=== PATIENT | female | born 2000 | race Caucasian/White ===

== ENCOUNTER 2023-07-02 12:06 | Outpatient (CLI) | payer OTHER, SELFPAY | END 2023-07-02 12:07 | disposition home or self-care (01) | PROVIDERS: PCP Physician Assistant Medical; Visit Provider Obstetrics & Gynecology | DX: R10.2 Pelvic and perineal pain (principal) | CPT/HCPCS: 87086; 87109 ==

== ENCOUNTER 2023-07-29 08:45 | Outpatient (CLI) | payer OTHER, SELFPAY | END 2023-07-29 08:46 | disposition home or self-care (01) | LOC: NFLDREF 09:08 | PROVIDERS: PCP Physician Assistant Medical; Visit Provider Obstetrics & Gynecology | DX: N34.1 Nonspecific urethritis (principal); B96.89 Other specified bacterial agents as the cause of diseases classified elsewhere | CPT/HCPCS: 87109 ==

== ENCOUNTER 2023-11-06 11:14 | Emergency (ER) | payer OTHER, SELFPAY ==
[2023-11-06 11:26] VITALS: BP 109/74; PULSE 110; RESP 16; TEMP 36.8; O2SAT 99; BMI 23.8
[2023-11-06 11:42] LABS: Appearance Urine Cloudy (Clear); Bilirubin Urine Negative (Negative); Blood Urine 2+ (Negative); Color Urine Yellow (Yellow); Glucose Urine Negative (Negative); Ketones Urine 1+ (Negative); Leukocyte Esterase Urine 1+ (Negative); Nitrite Urine Negative (Negative); Protein Urine Negative (Negative); Specific Gravity Urine 1.015 (1.000-1.030); Urobilinogen Urine 0.2 (0.2-1.0)
[2023-11-06 11:45] LABS: Ur HCG Qualitative* Negative (Negative)
[2023-11-06 11:51] LABS: Bacteria Urine Moderate; Squamous Epithelial Cell Urine Many (None-Few); WBC Urine 25-50 (0-5)
[2023-11-06] MEDS: PHENAZOPYRIDINE HCL 200 MG TABLET PO (12:06)
--- NOTE | 2023-11-06 14:28 | ED.GENADULT ---
HPI - General Adult General Date Seen: 11/06/23 Chief complaint: Urogenital Problems, Female Stated complaint: Blood clots in urine painful Time Seen by Provider: 11/06/23 11:20 Source: patient, RN notes reviewed and old records reviewed Mode of arrival: ambulatory Limitations: no limitations History of Present Illness HPI narrative: Patient is a 23-year-old generally healthy young woman with a multiyear history of pelvic discomfort and dysuria. She says she has been diagnosed with UTI many times although she does not know whether she has ever had a positive culture. Most recently the beginning of this year she saw Dr. Gibson Genao in the clinic. She has had ureaplasma treated several times. She says that she will usually take Macrobid when she starts to get more acute urinary symptoms, and notes that within 15 minutes of taking that she tends to feel better. However today she had significant dysuria and did not feel better after taking a dose of Macrobid. She has historically not found peridium to be helpful. With her prior boyfriend she had a lot of dyspareunia but notes that is not a problem currently with her . She had been prescribed a steroid cream but did not feel was helpful so she discontinued that. She denies fevers, flank pain, nausea vomiting. She did note blood in her urine this morning. Related Data Home Medications ?Medication ?Instructions ?Recorded ?Confirmed dextroamphetamine-amphetamine 20 20 mg PO BID 07/02/23 11/06/23 mg tablet (Adderall) etonogestrel 68 mg subdermal 1 implant subdermal ONCE 07/29/23 11/06/23 implant (Nexplanon) nitrofurantoin 1 cap PO Q12H 11/06/23 11/06/23 monohydrate/macrocrystals 100 mg capsule Previous Rx's ?Medication ?Instructions ?Recorded nitrofurantoin macrocrystal 50 mg 50 mg PO ONCE #30 caps 11/06/23 capsule Allergies Allergy/AdvReac Type Severity Reaction Status Date / Time No Known Drug Allergies Allergy Verified 07/29/23 08:26 Review of Systems Status of ROS: Reports: 6 or more systems reviewed and unremarkable except as noted in History and below PFSH PFSH Social History Smoking Status: Never smoker Do you use any of these nicotine containing products: None How often do you have a drink containing alcohol: never AUDIT-C Alcohol total score: 0 Non-prescribed substance use: denies use Exam Narrative: Exam Narrative: Vital signs reviewed In general, alert, nontoxic woman. Abdomen, soft nontender nondistended. No CVA tenderness. Skin: Warm dry well perfused. Pelvic deferred. Const: Vital Signs, click to edit/add: Vital Signs - 24 hr 11/06/23 11:26 Temperature 98.2 F Pulse Rate [Pulse Oximeter] 110 H Respiratory Rate 16 Blood Pressure [Ri ght Upper Arm] 109/74 Pulse Oximetry 99 Oxygen Delivery Me thod Room Air Documenting provider has reviewed patient's vital signs: yes Course Course ED Course: Urinalysis today shows 10-25 white cells, 2-5 red cells. This is in comparison to June when she was having minimal symptoms at which time UA was negative. Culture at that time was negative as well. It is unclear to me whether this represents true UTI, she is not able to pull up any of her september or records to see whether she has had positive cultures in the past. I think based on what she is telling me that for now we need to treat this as urinary tract infection. She has never seen Urology and I think that would be a good next step for her. It is unclear to me whether this might represent interstitial cystitis or whether she is having very frequent urinary tract infections. I did recommend a trial of post coital nitrofurantoin to see if that has any effect on this for her. Ureaplasma has been treated multiple times, it has never seemingly cleared. Would defer further treatment for this to Gyne. Recommend follow-up with Dr. Gibson Genao as well pending urology visit. Exam is benign, I have no reason to suspect pyelonephritis, sepsis, PID, or other new diagnoses based on the chronicity of the symptoms. Return for worsening. Vital Signs Vital signs: Initial Vital Signs Temperature 98.2 F 11/06/23 11:26 Temperature Source Temporal Artery Scan 11/06/23 11:26 Pulse Rate 110 H 11/06/23 11:26 Pulse Rhythm Regular 11/06/23 11:26 Respiratory Rate 16 11/06/23 11:26 Blood Pressure 109/74 11/06/23 11:26 Blood Pressure Mean 85 11/06/23 11:26 Blood Pressure Position Sitting 11/06/23 11:26 Pulse Oximetry 99 11/06/23 11:26 Oxygen Delivery Method Room Air 11/06/23 11:26 Vital Signs Temperature 98.2 F 11/06/23 11:26 Pulse Rate 110 H 11/06/23 11:26 Respiratory Rate 16 11/06/23 11:26 Blood Pressure 109/74 11/06/23 11:26 Pulse Oximetry 99 11/06/23 11:26 Oxygen Delivery Method Room Air 11/06/23 11:26 Temperature 98.2 F 11/06/23 11:26 Pulse Rate 110 H 11/06/23 11:26 Respiratory Rate 16 11/06/23 11:26 Blood Pressure 109/74 11/06/23 11:26 Pulse Oximetry 99 11/06/23 11:26 Oxygen Delivery Method Room Air 11/06/23 11:26 Medications Administered Medications: Discontinued Medications Generic Name Dose Route Start Last Admin Trade Name Freq PRN Reason Stop Dose Admin Phenazopyridine HCl 200 mg 11/06/23 12:02 11/06/23 12:06 Phenazopyridine Hcl 200 Mg Tablet PO 11/06/23 12:03 200 mg ONCE ONE Administration Medical Decision Making Lab Data Labs: Lab Results 11/06/23 Range/Units 11:35 Urine Color Yellow (Yellow) Urine Appearance Cloudy A (Clear) Urine pH 7.0 (5.0-8.5) Ur Specific [place] 1.015 (1.000-1.030) Urine Protein Negative (Negative) Urine Glucose (UA) Negative (Negative) Urine Ketones 1+ A (Negative) Urine Blood 2+ A (Negative) Urine Nitrite Negative (Negative) Urine Bilirubin Negative (Negative) Urine Urobilinogen 0.2 (0.2-1.0) Ur Leukocyte Esterase 1+ A (Negative) Urine RBC 2-5 A (0-2) Urine WBC 25-50 A (0-5) Ur Squamous Epith Cells Many A (None-Few) Urine Bacteria Moderate A (None) Urine HCG, Qual Negative (Negative) Discharge Plan Discharge Clinical Impression: Dysuria, Pelvic pain Patient Disposition: Home, Self-Care Condition: Stable Instructions: Urinary Tract Infection in Women (DC) Additional Instructions: Take antibiotic as prescribed for urinary tract infection for 5 days. I am going to prescribe nitrofurantoin, 50 mg tablets. Take 1 of these after sex. Please follow-up with urology, you will need to schedule this appointment. One option is [facility], phone number [phone]. You should be able to tell them that you were seen in the ER and we recommended urology follow-up for chronic urinary tract infections and urinary symptoms. Please make sure you follow-up on the culture from today's visit so that you can share that information with them. For new symptoms such as fevers, vomiting, chills, flank pain, return to the emergency department at any time. Prescriptions: New nitrofurantoin macrocrystal 50 mg capsule 50 mg PO ONCE Qty: 30 0RF Rx Instructions: must administer with a meal/food Take one capsule after intercourse No Action Nexplanon 68 mg implant 1 implant subdermal ONCE Rx Instructions: as a single dose dextroamphetamine-amphetamine [Adderall] 20 mg tablet 20 mg PO BID Rx Instructions: administer doses at least 4-6 hours apart nitrofurantoin monohyd/m-cryst 100 mg capsule 1 cap PO Q12H Follow Up/Referrals: Colette Meeks PA-C [Primary Care Provider] - Stand Alone Forms: [employer] Info Instructions
== END 2023-11-06 13:00 | disposition home or self-care (01) ==
PROVIDERS: Emergency Provider Emergency Medicine; PCP Physician Assistant Medical
DX: R30.0 Dysuria (principal); R10.2 Pelvic and perineal pain
CPT/HCPCS: 81001; 81025; 87086; 99283; 99284; A9270

== ENCOUNTER 2024-06-02 06:56 | Emergency (ER) | payer OTHER, SELFPAY ==
--- OUTSIDE RECORDS SUMMARY | 2024-06-02 06:58 | XMS_ITS | Clinical Summary ---
Author Organization [facility] Address [place], [place] [address] Care Team Providers Care Mortgage Loan Processor Name Role Phone Colette Meeks Primary Care Provider Allergies No known active allergies Medications dextroamphetamine- amphetamine (AdderalL) 20 mg tabletIndications: Attention deficit hyperactivity disorder (ADHD), combined type Take 1 Tablet (20 mg) by mouth two times daily. 60 Tablet 3 Active dextroamphetamine- amphetamine (AdderalL) 20 mg tabletIndications: Attention deficit hyperactivity disorder (ADHD), combined type Take 1 Tablet (20 mg) by mouth two times daily. 60 Tablet 4 Active Active Problems Problem Noted Date Diagnosed Date Pap smear for cervical cancer screening 05/02/20 23 Overview (05/29/2023): 05/2023 NIL Pap/HPV due in 3 years Dyspareunia 06/29/2021 Cervical lymphadenopathy 02/27/2021 Encounters Date Type Department Care Team Description 05/19/2024 7:30 AM CASH GRAIN FARMER Office Visit [facility] [address] [place] [address] Chris Dahl MD Contraception [facility]remove [facility] 05/19/2024 Travel 05/17/2024 Telephone [facility] [address] [place] [address] Chris Dahl MD Appointment; Questions (returning a call) from Last 3 Months Immunizations Name Administration Dates Next Due DTaP 01/23/2006, 2,2000,09/29,2000 DTaP-HIB (TriHIBIT) 09/08/2001 HIB PRP-T (ActHIB,Hiberix) 09/08/2001,,2000,07/14 Hepatitis B (Peds) 02/13/2001,2000, 001 Human Papilloma Virus Vaccine 01/12/2013 Inactivated Polio Vaccine 01/23/2006,,2000,07/14 MMR 01/23/2006,09/08/2001 Meningococcal Vaccine (Menactra) 01/12/2013 Pneumococcal conj 7-Valent (Prevnar 7) 1 Tdap 01/12/2013 Varicella Vaccine 01/12/2013,06/12/2001 Family History Medical History Relation Name Comments Good Health Father Good Health Half-Sister 1 Mental illness Half-Sister 1 Good Health Half-Sister 2 Mental illness Half-Sister 2 Good Health Mother Relation Name Status Comments Father Half-Sister 1 Alive Half-Sister 2 Alive Mother Social History Tobacco Use Types Packs/Day Years Used Date Smoking Tobacco: Never Smokeless Tobacco: Never [facility] Utilities Answer Date Recorded Do you have trouble paying f or utilities (for example, heat, electricity, water, phone)? Yes 05/19/2024 Social Connections Answer Date Recorded Do you often feel lonely or isolated from those around you? 0 05/19/2024 Financial Resource Strain Answer Date R ecorded Difficulty of Paying Living Expenses 3 05/19/2024 Difficulty of Paying Living Expenses Not on file 05/19/2024 Food Insecurity Answer Date Recorded Do you worry your food will run out before you are able to buy more? 1 05/19/2024 Transportation Needs Answer Date Record ed Does lack of transportation keep you from medica l appointments? 1 05/19/2024 Does lack of transportation keep you from work, meetings or getting things that you need? 1 05/19/2024 Housing Stability Answer Date Recorded What is your housing situation today? 1 05/19/2024 Comments No Sex and Gender Information Value Date Recorded Sex Assigned at Not on file Legal Sex Female 5:42 AM CASH GRAIN FARMER Gender Identity Not on file Sexual Orientation Not on file Travel History Travel Start Travel End [place] 2024 05/16/2024 Obstetrics History Last Filed Vital Signs Vital Sign Reading Time Taken Comments Blood Pressure 104/70 05/19/2024 7:37 AM CASH GRAIN FARMER Pulse 80 05/19/2024 7:37 AM CASH GRAIN FARMER Temperature 37.9 C (100.3 F) 03/25/2022 12:32 PM CDT Respiratory Rate 18 03/25/2022 11:13 AM CDT Oxygen Saturation 98% 05/19/2024 7:37 AM CASH GRAIN FARMER Inhaled Oxygen Concentration - - Weight 55.8 kg (123 lb 1.6 oz) 05/19/2024 7:37 A M CASH GRAIN FARMER Height 152.4 cm (5') 05/20/2023 11:56 AM CASH GRAIN FARMER Body Mass Index 24.04 05/20/2023 11:56 AM CASH GRAIN FARMER Plan of Treatment Health Maintenance Due Date Last Done Comments Depression screening for age 12+ 2012 HPV series for age 9-26 (2 - 2-dose series) 07/15/2013 01/12/2013 HIV for age 15-65 2015 Hepatitis C screening for ag e 18-79 2018 Tetanus booster 01/12/2023 01/12/2013 COVID-19 vaccine series ( season) 2024 Influenza for age 9-49 02/01/2024 BMI (ht and wt on same day) for age 18+ 05/20/2024 05/20/2023, 01/08/2023, 12/20/2022 Chlamydia for age 16-24 05/20/2024 05/20/2023 Pap test for age 21-65 05/20/2026 05/20/2023 Pneumococcal series for age 6-49 Aged Out 2000 No longer eligible b ased on patient's age to complete this topic Tdap Completed 01/12/2013 Procedures Procedure Name Priority Date/Time Associated Diagnosis Comments GC CHLAMYDIA TRACH PROBE Routine 05/20/2023 12:22 PM CASH GRAIN FARMER Vaginal irritation TIME STUDY OBSERVER THIN PREP PAP SCREEN IMAGED Routine 05/20/2023 12:22 PM CASH GRAIN FARMER Screening for cervical cancer from Last 3 Months or Most Recently Relevant to Health Maintenance Results * TIME STUDY OBSERVER THIN PREP PAP SCREEN IMAGED (05/20/2023 12:22 PM CASH GRAIN FARMER) Case Report Gynecologic Cytology Report Case: [id number] Authorizing Provider: Colette Meeks PA Collected: 05/20/2023 1222 Ordering Location: [facility] Received: 05/20/2023 1253 Clinic First Screen: Vincent Sexton Rescreen: Prabha Devine Specimen: TIME STUDY OBSERVER ThinPrep Vial Screening, Cervical 05/29/2023 5:22 PM CASH GRAIN FARMER [facility]AL LAB[facility] INTERPRETATION/ RESULT NEGATIVE FOR INTRAEPITHELIAL LESION OR MALIGNANCY (NIL) (none) 05/29/2023 5:22 PM CASH GRAIN FARMER [facility] [place] [facility]-C ENTRAL LABORATORY IMEN ADEQUACY Satisfactory for evaluation Endocervical component present 05/29/2023 5:22 PM CASH GRAIN FARMER [facility] EN[facility]AL LAB[facility]ATORY Date of LMP unsure 05/29/2023 5:22 PM CASH GRAIN FARMER [facility]-C ENTRAL LABORATORY Last Pap Date this is 1st 05/29/2023 5:22 PM CASH GRAIN FARMER [facility] ENTRAL LABORATORY Last Pap Result First Pap/Unknown 5:22 PM CASH GRAIN FARMER [facility]-C ENTRAL LABORATORY Abnormal Pap or [place] Bx in last 5 years No 05/29/2023 5:22 PM CASH GRAIN FARMER [facility] [place] [facility]-C ENTRAL LABORATORY Menstrual Status Hormonally Suppressed 05/29/2023 5:22 PM CASH GRAIN FARMER [facility] [place] [facility]-C ENTRAL LABORATORY [place] Bx Done Today No 05/29/2023 5:22 PM CASH GRAIN FARMER [facility] Additional Information None given 05/29/2023 5:22 PM CASH GRAIN FARMER [facility] [place] [facility]-C ENTRAL LABORATORY Comment: Cytology is screened at [facility] [employer], Central Laboratory - [address], [place] [address] and [facility] Laboratory - [address], [place] [address] and [facility] Laboratory - [address], [place] [address] Interpreted at [facility] [employer] [facility], Central Laboratory - [address], [place] [address] Automated Review Successful 05/29/2023 5:22 PM CASH GRAIN FARMER [facility] LABORATORY-C ENTRAL LABORATORY Comment:Specimen processed s uccessfully by automated credit portfolio manager device, ThinPrep Imaging System, [employer] Note The pap test is a screening technique, not a diagnostic procedure. It is used primarily to screen for squamous cancers and precursor lesions. Published studies have shown that it is subject to both false negative and false positive results. The pap test should not be used as the sole means to diagnose or exclude pre-malignant and malignant lesions. 05/29/2023 5:22 PM CASH GRAIN FARMER [facility] [place] [facility]-C ENTRAL LABORATORY Other (Cervical) Non-Blood / Unknown 05/20/2023 12:22 PM CASH GRAIN FARMER 05/20/2023 12:53 PM CASH GRAIN FARMER Colette ALMEIDA PATHOLOGY/CYTOLOGY Luzma l Result Performing Organization Address [facility]/ZIP Co de Phone Number [facility] [address] [place] [id number], * GC & CHLAMYDIA DNA PCR [[id number]] (05/20/2023 12:22 PM CASH GRAIN FARMER) CHLAMYDIA PROBE Negative 1:35 AM CASH GRAIN FARMER [facility] TRAL LABORATORY N GONORRHOEAE PROBE Negative 05/21/2023 1:35 AM CASH GRAIN FARMER [facility] TRAL LABORATORY Other VAGINAL SWAB / Unknown Non-Blood / Unknown 05/20/2023 12:22 PM CASH GRAIN FARMER 05/20/2023 12:53 PM CASH GRAIN FARMER Colette ALMEIDA MICROBIOLOGY Final R esult Performing Organization Address [facility] Co de Phone Number [facility] LABORATORY [address] [address], from Last 3 Months or Most Recently Relevant to Health Maintenance Insurance [facility] Care Teams Mortgage Loan Processor Relationship Specialty Start Date End Date Colette Meeks [place] [address] PCP - General Physician Welcome Wagon Host/Hostess 05/19/23
[2024-06-02 07:00] VITALS: BP 125/81; PULSE 69; RESP 16; TEMP 36.7; O2SAT 98; BMI 24.0
[2024-06-02 07:10] LABS: Appearance Urine Cloudy (Clear); Bilirubin Urine Negative (Negative); Blood Urine 2+ (Negative); Color Urine Orange (Yellow); Glucose Urine Trace (Negative); Ketones Urine Trace (Negative); Leukocyte Esterase Urine 3+ (Negative); Nitrite Urine Positive (Negative); Protein Urine 1+ (Negative); Specific Gravity Urine <= 1.005 (1.000-1.030)
[2024-06-02 07:29] LABS: Bacteria Urine Few; Squamous Epithelial Cell Urine Moderate (None-Few); Ur HCG Qualitative* Negative (Negative); WBC Urine 25-50 (0-5)
--- OUTSIDE RECORDS SUMMARY | 2024-06-02 07:29 | XMS_ITS | Clinical Summary ---
Author Organization [facility] [place], [place] [address] Care Team Providers Care Technical Expert Name Role Phone Colette Meeks Primary Care [...] Department Care Team Description 05/19/2024 7:30 AM PROGRAM FACILITATOR Office Visit [facility] [address] [place] [address] Chris Dahl MD Contraception [facility] ) 05/19/2024 Travel 05/17/2024 Telephone [facility] [address] [place] [address] Chris Dahl MD Appointment; Questions (returning a [...] Date Smoking Tobacco: Never Smokeless Tobacco: Never [facility] Utilities Answer Date Recorded Do you [...] on file Legal Sex Female 5:42 AM PROGRAM FACILITATOR Gender Identity Not on file Sexual Orientation Not on file Travel History Travel Start Travel End [place] 2024 05/16/2024 Obstetrics History Last Filed Vital Signs Vital Sign Reading Time Taken Comments Blood Pressure 104/70 05/19/2024 7:37 AM PROGRAM FACILITATOR Pulse 80 05/19/2024 7:37 AM PROGRAM FACILITATOR Temperature 37.9 C (100.3 F) 03/25/2022 12:32 PM CDT Respiratory Rate 18 03/25/2022 11:13 AM CDT Oxygen Saturation 98% 05/19/2024 7:37 AM PROGRAM FACILITATOR Inhaled Oxygen Concentration - - Weight 55.8 kg (123 lb 1.6 oz) 05/19/2024 7:37 A M PROGRAM FACILITATOR Height 152.4 cm (5') 05/20/2023 11:56 AM PROGRAM FACILITATOR Body Mass Index 24.04 05/20/2023 11:56 AM PROGRAM FACILITATOR Plan of Treatment Health Maintenance Due Date [...] CHLAMYDIA TRACH PROBE Routine 05/20/2023 12:22 PM PROGRAM FACILITATOR Vaginal irritation ANSWERING SERVICE AGENT THIN PREP PAP SCREEN IMAGED Routine 05/20/2023 12:22 PM PROGRAM FACILITATOR Screening for cervical cancer from Last 3 Months or Most Recently Relevant to Health Maintenance Results * ANSWERING SERVICE AGENT THIN PREP PAP SCREEN IMAGED (05/20/2023 12:22 PM PROGRAM FACILITATOR) Case Report Gynecologic Cytology Report Case: [id number] Authorizing Provider: Colette Meeks PA Collected: 05/20/2023 1222 Ordering Location: [facility] Received: 05/20/2023 1253 Clinic First Screen: Vincent Sexton Rescreen: Prabha Devine Specimen: ANSWERING SERVICE AGENT ThinPrep Vial Screening, Cervical 05/29/2023 5:22 PM PROGRAM FACILITATOR [facility] ENTRAL LABORATORY INTERPRETATION/ RESULT NEGATIVE FOR INTRAEPITHELIAL LESION OR MALIGNANCY (NIL) (none) 05/29/2023 5:22 PM PROGRAM FACILITATOR [facility] [employer] [facility]-C ENTRAL LABORATORY IMEN ADEQUACY Satisfactory for evaluation Endocervical component present 05/29/2023 5:22 PM PROGRAM FACILITATOR [facility] ENTRAL LABORATORY Date of LMP unsure 05/29/2023 5:22 PM PROGRAM FACILITATOR [facility]-C ENTRAL LABORATORY Last Pap Date this is 1st 05/29/2023 5:22 PM PROGRAM FACILITATOR [facility] ENTRAL LABORATORY Last Pap Result First Pap/Unknown 5:22 PM PROGRAM FACILITATOR [facility]-C ENTRAL LABORATORY Abnormal Pap or [place] Bx in last 5 years No 05/29/2023 5:22 PM PROGRAM FACILITATOR [facility] [employer] LABORATORY-C ENTRAL LABORATORY Menstrual Status Hormonally Suppressed 05/29/2023 5:22 PM PROGRAM FACILITATOR [facility] [employer] [facility]-C ENTRAL LABORATORY [place] Bx Done Today No 05/29/2023 5:22 PM PROGRAM FACILITATOR [facility] Additional Information None given 05/29/2023 5:22 PM PROGRAM FACILITATOR [facility] [employer] [facility]-C ENTRAL LABORATORY Comment: Cytology is screened at [facility] [employer], Central Laboratory - [address], [place] [address] and [facility] Laboratory - [address], [place] [address] and [facility] Laboratory - [address], [place] [address] Interpreted at [facility] [employer] [facility], Central Laboratory - [address], [place] [address] Automated Review Successful 05/29/2023 5:22 PM PROGRAM FACILITATOR [facility] LABORATORY-C ENTRAL LABORATORY Comment:Specimen processed s uccessfully by automated tongue carrier device, ThinPrep Imaging System, [employer] Note The pap test is a screening technique, not a diagnostic procedure. It is used primarily to screen for squamous cancers and precursor lesions. Published studies have shown that it is subject to both false negative and false positive results. The pap test should not be used as the sole means to diagnose or exclude pre-malignant and malignant lesions. 05/29/2023 5:22 PM PROGRAM FACILITATOR [facility] [employer] LABORATORY-C ENTRAL LABORATORY Other (Cervical) Non-Blood / Unknown 05/20/2023 12:22 PM PROGRAM FACILITATOR 05/20/2023 12:53 PM PROGRAM FACILITATOR Colette ALMEIDA PATHOLOGY/CYTOLOGY Luzma l Result Performing Organization Address [facility]/ZIP Co de Phone Number [facility] [address] [place] [phone], * GC & CHLAMYDIA DNA PCR [[id number]] (05/20/2023 12:22 PM PROGRAM FACILITATOR) CHLAMYDIA PROBE Negative 1:35 AM PROGRAM FACILITATOR [facility] TRAL LABORATORY N GONORRHOEAE PROBE Negative 05/21/2023 1:35 AM PROGRAM FACILITATOR [facility] TRAL LABORATORY Other VAGINAL SWAB / Unknown Non-Blood / Unknown 05/20/2023 12:22 PM PROGRAM FACILITATOR 05/20/2023 12:53 PM PROGRAM FACILITATOR Colette ALMEIDA MICROBIOLOGY Final R esult Performing Organization Address [facility] Co de Phone Number [facility] [address] [address], from Last 3 Months or Most Recently Relevant to Health Maintenance Insurance [facility] Care Teams Technical Expert Relationship Specialty Start Date End Date Colette Meeks [place] [address] PCP - General Physician Heat Treatment Technician 05/19/23
--- NOTE | 2024-06-02 07:32 | ED_ITS ---
HPI - General Adult General Date Seen: 06/02/24 Chief complaint: Urogenital Problems, Female Stated complaint: possible UTI Time Seen by Provider: 06/02/24 06:57 History of Present Illness HPI narrative: Patient is a 24-year-old in woman who describes dysuria and urgency starting at 4:00 a.m.. She notes prior history of UTI and this feels similar. Denies fevers, flank pain, abdominal pain. She is leaving in 8 hours to go to [place] on her honeymoon and was concerned about waiting to be seen. She just had her Nexplanon removed as she plans to try to get . She does not specifically suspect at this time. Related Data Home Medications ?Medication ?Instructions ?Recorded ?Confirmed dextroamphetamine-amphetamine 20 20 mg PO BID 07/02/23 11/06/23 mg tablet (Adderall) etonogestrel 68 mg subdermal 1 implant subdermal ONCE 07/29/23 11/06/23 implant (Nexplanon) nitrofurantoin 1 cap PO Q12H 11/06/23 11/06/23 monohydrate/macrocrystals 100 mg capsule Previous Rx's ?Medication ?Instructions ?Recorded nitrofurantoin macrocrystal 50 mg 50 mg PO ONCE #30 caps 11/06/23 capsule Allergies Allergy/AdvReac Type Severity Reaction Status Date / Time No Known Drug Allergies Allergy Verified 07/29/23 08:26 PFSH [facility] Social History Smoking Status: Never smoker Do you use any of these nicotine containing products: None How often do you have a drink containing alcohol: never AUDIT-C Alcohol total score: 0 Non-prescribed substance use: denies use Exam Narrative: Exam Narrative: Vital signs normal. In general, alert, well-appearing young woman. Abdomen: Soft nontender. Back: No CVA tenderness. Skin: Warm dry well perfused. Const: Vital Signs, click to edit/add: Vital Signs - 24 hr 06/02/24 07:00 Temperature 98.0 F Pulse Rate [Pulse Oximeter] 69 Respiratory Rate 16 Blood Pressure [Ri ght Upper Arm] 125/81 Pulse Oximetry 98 Oxygen Delivery Me thod Room Air Course Course ED Course: test is negative. UA is suggestive of UTI with positive nitrites, 3+ leukocyte esterase, 10-25 red cells and 25-50 white cells.. Culture pending. Macrobid prescribed. She has previously not found pretty am helpful. She should be seen again for fever, significant flank pain, vomiting or other worsening. Vital Signs Vital signs: Initial Vital Signs Temperature 98.0 F 06/02/24 07:00 Temperature Source Temporal Artery Scan 06/02/24 07:00 Pulse Rate 69 06/02/24 07:00 Respiratory Rate 16 06/02/24 07:00 Blood Pressure 125/81 06/02/24 07:00 Blood Pressure Mean 95 06/02/24 07:00 Blood Pressure Position Sitting 06/02/24 07:00 Pulse Oximetry 98 06/02/24 07:00 Oxygen Delivery Method Room Air 06/02/24 07:00 Vital Signs Temperature 98.0 F 06/02/24 07:00 Pulse Rate 69 06/02/24 07:00 Respiratory Rate 16 06/02/24 07:00 Blood Pressure 125/81 06/02/24 07:00 Pulse Oximetry 98 06/02/24 07:00 Oxygen Delivery Method Room Air 06/02/24 07:00 Temperature 98.0 F 06/02/24 07:00 Pulse Rate 69 06/02/24 07:00 Respiratory Rate 16 06/02/24 07:00 Blood Pressure 125/81 06/02/24 07:00 Pulse Oximetry 98 06/02/24 07:00 Oxygen Delivery Method Room Air 06/02/24 07:00 Medical Decision Making Lab Data Labs: Lab Results 06/02/24 Range/Units 07:05 Urine Color [place] A (Yellow) Urine Appearance Cloudy A (Clear) Urine pH 5.0 (5.0-8.5) Ur Specific [place] <= 1.005 (1.000-1.030) Urine Protein 1+ A (Negative) Urine Glucose (UA) Trace A (Negative) Urine Ketones Trace A (Negative) Urine Blood 2+ A (Negative) Urine Nitrite Positive A (Negative) Urine Bilirubin Negative (Negative) Urine Urobilinogen 2.0 A (0.2-1.0) Ur Leukocyte Esterase 3+ A (Negative) Urine RBC 10-25 A (0-2) Urine WBC 25-50 A (0-5) Ur Squamous Epith Cells Moderate A (None-Few) Urine Bacteria Few A (None) Urine HCG, Qual Negative (Negative) Discharge Plan Discharge Clinical Impression: Urinary tract infection Patient Disposition: Home, Self-Care Condition: Stable Instructions: Urinary Tract Infection in Women (DC) Additional Instructions: Take Macrobid as prescribed. You should be seen again for fevers, significant flank pain, vomiting or other worsening. Prescriptions: No Action Nexplanon 68 mg implant 1 implant subdermal ONCE Rx Instructions: as a single dose dextroamphetamine-amphetamine [Adderall] 20 mg tablet 20 mg PO BID Rx Instructions: administer doses at least 4-6 hours apart nitrofurantoin monohyd/m-cryst 100 mg capsule 1 cap PO Q12H nitrofurantoin macrocrystal 50 mg capsule 50 mg PO ONCE Qty: 30 0RF Rx Instructions: must administer with a meal/food Take one capsule after intercourse Follow Up/Referrals: Colette Meeks PA-C [Primary Care Provider] - Stand Alone Forms: [employer] Info Instructions
== END 2024-06-02 07:36 | disposition home or self-care (01) ==
PROVIDERS: Emergency Provider Emergency Medicine; PCP Physician Assistant Medical
DX: N39.0 Urinary tract infection, site not specified (principal)
CPT/HCPCS: 81001; 81025; 87086; 99283

== ENCOUNTER 2024-06-22 11:37 | Emergency (ER) | payer OTHER, SELFPAY ==
[2024-06-22 11:43] VITALS: BP 125/79; PULSE 96; RESP 20; TEMP 36.8; O2SAT 99; BMI 23.4
--- OUTSIDE RECORDS SUMMARY | 2024-06-22 12:11 | XMS_ITS | Clinical Summary ---
[facility] Address [place], [place] [address] Care Team Providers Care [facility] Worker Name Role Phone Colette Meeks Primary Care [...] Department Care Team Description 05/19/2024 7:30 AM SUPERVISOR LEAD BURNING Office Visit [facility] [address] [place] [address] Chris Dahl MD Contraception ([facility]on- [facility] the [facility] 05/19/2024 Travel 05/17/2024 Telephone [facility] [address] [place] [address] Chris Dahl MD Appointment; Questions (returning a [...] Date Smoking Tobacco: Never Smokeless Tobacco: Never Social Connections Answer Date Recorded Do you [...] is your housing situation today? 1 05/19/2024 Utilities Answer Date Recorded Do you have trouble paying f or utilities (for example, heat, electricity, water, phone)? 1 05/19/2024 Comments No Sex and Gender Information Value Date Recorded Sex Assigned at Not on file Legal Sex Female 5:42 AM SUPERVISOR LEAD BURNING Gender Identity Not on file Sexual Orientation Not on file Obstetrics History Last Filed Vital Signs Vital Sign Reading Time Taken Comments Blood Pressure 104/70 05/19/2024 7:37 AM SUPERVISOR LEAD BURNING Pulse 80 05/19/2024 7:37 AM SUPERVISOR LEAD BURNING Temperature 37.9 C (100.3 F) 03/25/2022 12:32 PM CDT Respiratory Rate 18 03/25/2022 11:13 AM CDT Oxygen Saturation 98% 05/19/2024 7:37 AM SUPERVISOR LEAD BURNING Inhaled Oxygen Concentration - - Weight 55.8 kg (123 lb 1.6 oz) 05/19/2024 7:37 A M SUPERVISOR LEAD [employer]URNING Height 152.4 cm (5') 05/20/2023 11:56 AM SUPERVISOR LEAD BURNING Body Mass Index 24.04 05/20/2023 11:56 AM SUPERVISOR LEAD BURNING Plan of Treatment Health Maintenance Due Date [...] CHLAMYDIA TRACH PROBE Routine 05/20/2023 12:22 PM SUPERVISOR LEAD BURNING Vaginal irritation BREAKER OPERATOR THIN PREP PAP SCREEN IMAGED Routine 05/20/2023 12:22 PM SUPERVISOR LEAD BURNING Screening for cervical cancer from Last 3 Months or Most Recently Relevant to Health Maintenance Results * BREAKER OPERATOR THIN PREP PAP SCREEN IMAGED (05/20/2023 12:22 PM SUPERVISOR LEAD BURNING) Case Report Gynecologic Cytology Report Case: [id number] Authorizing Provider: Colette Meeks PA Collected: 05/20/2023 1222 Ordering Location: [facility] Received: 05/20/2023 1253 Clinic First Screen: Vincent Setxon Rescreen: Prabha Devine Specimen: BREAKER OPERATOR ThinPrep Vial Screening, Cervical 05/29/2023 5:22 PM SUPERVISOR LEAD BURNING [facility] INTERPRETATION/ RESULT NEGATIVE FOR INTRAEPITHELIAL LESION OR MALIGNANCY (NIL) (none) 05/29/2023 5:22 PM SUPERVISOR LEAD BURNING [facility] [employer] [facility] ENTRAL LABORATORY IMEN ADEQUACY Satisfactory for evaluation Endocervical component present 05/29/2023 5:22 PM SUPERVISOR LEAD BURNING [facility] ENTRAL LABORATORY Date of LMP unsure 05/29/2023 5:22 PM SUPERVISOR LEAD BURNING [facility] [employer] [facility]- ENTRAL LABORATORY Last Pap Date this is 1st 05/29/2023 5:22 PM SUPERVISOR LEAD BURNING [facility] [id number] [employer] [facility] ENTRAL LABORATORY Last Pap Result First Pap/Unknown 5:22 PM SUPERVISOR LEAD BURNING [facility] [employer] [facility] ENTRAL LABORATORY Abnormal Pap or Broadus Bx in last 5 years No 05/29/2023 5:22 PM SUPERVISOR LEAD BURNING [facility] [employer] [facility] ENTRAL LAB[facility]ATORY Menstrual Status Hormonally Suppressed 05/29/2023 5:22 PM SUPERVISOR LEAD BURNING [facility] [employer] [facility] ENTRAL LABORATORY Broadus Bx Done Today No 05/29/2023 5:22 PM SUPERVISOR LEAD BURNING [facility] [employer] [facility] ENTRAL LABORATORY Additional Information None given 05/29/2023 5:22 PM SUPERVISOR LEAD BURNING [facility] ENTRAL LABORATORY Comment: Cytology is screened at [facility] [employer] [facility], Central Laboratory - [address], [place] [address] and [facility] - [address], [place] [address] and [facility] - [address] [place] [address] Interpreted at [facility] [employer], Central Laboratory - [address], [place] [address] Automated Review Successful 05/29/2023 5:22 PM SUPERVISOR LEAD BURNING [facility] ENTRAL LABORATORY Comment:Specimen processed s uccessfully by automated notcher device, ThinPrep Imaging System, [employer] Note The pap test is a screening technique, not a diagnostic procedure. It is used primarily to screen for squamous cancers and precursor lesions. Published studies have shown that it is subject to both false negative and false positive results. The pap test should not be used as the sole means to diagnose or exclude pre-malignant and malignant lesions. 05/29/2023 5:22 PM SUPERVISOR LEAD BURNING [facility]- ENTRAL LABORATORY Other (Cervical) Non-Blood / Unknown 05/20/2023 12:22 PM SUPERVISOR LEAD BURNING 05/20/2023 12:53 PM SUPERVISOR LEAD BURNING Colette ALMEIDA PATHOLOGY/CYTOLOGY Luzma l Result Performing Organization Address [facility] Co de Phone Number [facility] [address] [address], * GC & CHLAMYDIA DNA PCR [[id number]] (05/20/2023 12:22 PM SUPERVISOR LEAD BURNING) CHLAMYDIA PROBE Negative 1:35 AM SUPERVISOR LEAD BURNING [facility] TRAL LABORATORY N GONORRHOEAE PROBE Negative 05/21/2023 1:35 AM SUPERVISOR LEAD BURNING [facility] TRAL LABORATORY Other VAGINAL SWAB / Unknown Non-Blood / Unknown 05/20/2023 12:22 PM SUPERVISOR LEAD BURNING 05/20/2023 12:53 PM SUPERVISOR LEAD BURNING Colette ALMEIDA MICROBIOLOGY Final R esult Performing Organization Address [facility] Co de Phone Number [facility] [address] [place] [phone], from Last 3 Months or Most Recently Relevant to Health Maintenance Insurance [facility] [facility] Care Teams [facility] Worker Relationship Specialty Start Date End Date Colette Meeks PA [address] [place] [address] PCP - General Physician Professor Of Astronomy 05/19/23
--- NOTE | 2024-06-22 12:12 | ED.ABDPAIN ---
HPI - Abdominal Pain General Date Seen: 06/22/24 Chief Complaint: Constipation Stated Complaint: severe abdominal pain Time Seen by Provider: 06/22/24 11:45 Source: patient, RN notes reviewed and old records reviewed Mode of arrival: ambulatory Limitations: no limitations History of Present Illness HPI narrative: Patient is a 24-year-old female presents here for evaluation of left-sided abdominal pain she has had for last 2-3 days, this is coupled with which she describes as constipation, she has been trying MiraLax and milk of magnesia, with some liquid returns but really no stool, she denies any gas associated with this. The pain crampy colicky in nature and left upper and left lower quadrants. Better with pressure over this area, not associated with fevers chills, she has had some urinary frequency, which makes her think that her UTI may be back. She was last treated for this on June 02. Her last normal bowel movement she tells me is approximately June 08 when she was in [place] for her honeymoon. No previous history of any abdominal surgeries, has had constipation problems in the past, he is trying to get , just had her Nexplanon removed, approximately 1 month ago. No history of PID, there is a history of previous described as UTIs, pelvic pain and dysuria. She has not used any modifying medications such as Tylenol Advil, she tells me these typically make her nauseous. Related Data Patient : No (Unknown) Home Medications ?Medication ?Instructions ?Recorded ?Confirmed dextroamphetamine-amphetamine 20 20 mg PO BID 07/02/23 11/06/23 mg tablet (Adderall) etonogestrel 68 mg subdermal 1 implant subdermal ONCE 07/29/23 11/06/23 implant (Nexplanon) nitrofurantoin 1 cap PO Q12H 11/06/23 11/06/23 monohydrate/macrocrystals 100 mg capsule Previous Rx's ?Medication ?Instructions ?Recorded nitrofurantoin macrocrystal 50 mg 50 mg PO ONCE #30 caps 11/06/23 capsule Allergies Allergy/AdvReac Type Severity Reaction Status Date / Time No Known Drug Allergies Allergy Verified 06/22/24 11:43 Review of Systems Status of ROS Reports: 10 or more systems reviewed and unremarkable except as noted in History and below PFSH PFSH Social History Smoking Status: Never smoker Do you use any of these nicotine containing products: None How often do you have a drink containing alcohol: never AUDIT-C Alcohol total score: 0 Non-prescribed substance use: denies use Exam Narrative: Exam Narrative: On examination she is in no apparent distress, normal BMI, pressure is applied to her left upper quadrant, well I am discussing this with her. Her pupils are equal round reactive to light there is no scleral icterus redness oropharynx is normal her neck is supple, chest is good air entry bilaterally with no wheezing crackles noted her heart sounds are normal, her abdomen is scaphoid, some mild tenderness is noted the left upper quadrant on palpation, no masses are noted. She has no peritoneal signs, bowel sounds are normal throughout her entire abdomen. No CVA tenderness, noted, skin reveals no petechiae rashes and she is neurologically intact. Moving all extremities independently well with normal proximal and distal strength. Const: Vital Signs, click to edit/add: Vital Signs - 24 hr 06/22/24 11:43 Temperature 98.2 F Pulse Rate [Pulse Oximeter] 96 Respiratory Rate 20 Blood Pressure [Ri ght Upper Arm] 125/79 Pulse Oximetry 99 Oxygen Delivery Me thod Room Air Documenting provider has reviewed patient's vital signs: yes Course Course ED Course: I discussed with the patient, her x-ray was not consistent with severe constipation, she had lots of gas which may come for discomfort, she may be cleaning herself up with a repeat do some MiraLax and milk of magnesia, I did offer her CT scanning for further delineation of any other issue is she did tell me that a couple family members have recently been diagnosed with diverticulitis. This would be a combination of blood test along with a CT scan after consideration of this she would like to hold off on this further testing, I explained to her that that would be okay but definitely if she has worsening of her discomfort fevers chills or sweats or vomiting that she should come back and we should consider this. She was comfortable with this him going home. [place] reassured. I will further culture urine to ensure that she does not have a UTI. Even though that the UA looks negative. Vital Signs Vital signs: Initial Vital Signs Temperature 98.2 F 06/22/24 11:43 Temperature Source Temporal Artery Scan 06/22/24 11:43 Pulse Rate 96 06/22/24 11:43 Respiratory Rate 20 06/22/24 11:43 Blood Pressure 125/79 06/22/24 11:43 Blood Pressure Mean 94 06/22/24 11:43 Pulse Oximetry 99 06/22/24 11:43 Oxygen Delivery Method Room Air 06/22/24 11:43 Vital Signs Temperature 98.2 F 06/22/24 11:43 Pulse Rate 96 06/22/24 11:43 Respiratory Rate 20 06/22/24 11:43 Blood Pressure 125/79 06/22/24 11:43 Pulse Oximetry 99 06/22/24 11:43 Oxygen Delivery Method Room Air 06/22/24 11:43 Temperature 98.2 F 06/22/24 11:43 Pulse Rate 96 06/22/24 11:43 Respiratory Rate 06/22/24 11:43 Blood Pressure 125/79 06/22/24 11:43 Pulse Oximetry 99 06/22/24 11:43 Oxygen Delivery Method Room Air 06/22/24 11:43 MDM - Abdominal Pain MDM Narrative Medical decision making narrative: During the evaluation of this patient I considered multiple differential diagnosis including life-threatening differentials which are appendicitis, aortic aneurysm, mesenteric ischemia, bowel perforation, ectopic , volvulus and bowel obstruction, other differential diagnosis include but are not limited to inflammatory bowel disease, cholecystitis, pancreatitis, hepatitis, gastritis, GERD, diverticulitis, peptic ulcer disease, pyelonephritis/UTI, renal colic/stone, pelvic inflammatory disease, cervicitis, endometritis, intrauterine , dysfunctional uterine bleeding, ovarian cyst/torsion, spontaneous as well as other etiologies I discussed with her we will get a urine, and urine test, if the urine test is negative we will proceed with an x-ray to see what kind of the stool load she has, she may require other imaging modalities, and blood test. She was comfortable this plan, based on this. We could use some Toradol, but she would like to hold off the present time, avoidance of narcotics as if she is constipated this will further constipate her but will be discussed. Medical Records Attestation: I reviewed the patient's medical records. Lab Data Attestation: I reviewed the patient's lab results. Labs: Lab Results 06/22/24 Range/Units 11:57 Urine Color Yellow (Yellow) Urine Appearance Clear (Clear) Urine pH 8.0 (5.0-8.5) Ur Specific [place] 1.015 (1.000-1.030) Urine Protein Negative (Negative) Urine Glucose (UA) Negative (Negative) Urine Ketones Negative (Negative) Urine Blood Negative (Negative) Urine Nitrite Negative (Negative) Urine Bilirubin Negative (Negative) Urine Urobilinogen 0.2 (0.2-1.0) Ur Leukocyte Esterase Trace A (Negative) Urine RBC 0-2 (0-2) Urine WBC 0-2 (0-5) Ur Squamous Epith Cells Many A (None-Few) Amorphous Sediment Few A (None) Urine Bacteria Moderate A (None) Urine HCG, Qual Negative (Negative) Imaging Data Abdominal x-ray: Attestation: I have reviewed the pertinent imaging results. My impression: No acute constipation scattered air-fluid levels, Radiologist's impression: [place] [address] Diagnostic Imaging Report Patient: Koko Fleming MR#: [id number] : 2000 Acct:[id number] Loc: ED Service Date: 06/22/[address]: Ordering Physician: Leo James M.D. Date of Service: 06/22/24 Procedure(s): XR abdomen min 2V Accession Number(s): [id number] cc: Colette Meeks PA-C; Leo James M.D.~ For Patients: As a result of the Cures Act, medical imaging exams and procedure reports are released immediately into your electronic medical record. You may view this report before your referring provider. If you have questions, please contact your health care provider. INDICATION: Left-sided pain COMPARISON: None. TECHNIQUE: 2 view abdominal radiograph, supine and upright. FINDINGS: Small left-sided stool burden. No dilated bowel loops. Scattered air-fluid levels in nondilated bowel in the right lower quadrant and pelvis. No organomegaly or mass effect. No worrisome calcifications. Lung bases: Clear. Osseous structures: No acute appearing findings. IMPRESSION: Nonobstructive bowel gas pattern. Scattered air-fluid levels in nondilated distal small bowel and right colon may be related to an enteritis/colitis. Dictated by Clara Silver MD @ 06/22/2024 12:39:33 PM (Electronically Signed) Discharge Plan Discharge Clinical Impression: Abdominal pain Patient Disposition: Home, Self-Care Condition: Stable Instructions: Abdominal Pain (ED) Additional Instructions: Home rest, you do not have constipation on x-ray, you do have a lot a gas especially in the left upper quadrant of your abdomen which I suspect is given you the pain and cramping. Hopefully this will decrease over the next few days. In babies we do use a medication called simethicone, you can try this, it makes everything kind of slippery, and should not cause any nausea like Tylenol and ibuprofen. It also is safe in . I do recommend follow-up back in the emergency room if he of increasing pain fevers chills nausea vomiting, as we discussed there is a low chance that this is diverticulitis given what I am seeing, his urine the wrong age range. I do think following up with Christi from [facility] is a good idea, her knowledge is awesome. Activity Level: Light activity Discharge Diet: Regular Prescriptions: No Action Nexplanon 68 mg implant 1 implant subdermal ONCE Rx Instructions: as a single dose dextroamphetamine-amphetamine [Adderall] 20 mg tablet 20 mg PO BID Rx Instructions: administer doses at least 4-6 hours apart nitrofurantoin monohyd/m-cryst 100 mg capsule 1 cap PO Q12H nitrofurantoin macrocrystal 50 mg capsule 50 mg PO ONCE Qty: 30 0RF Rx Instructions: must administer with a meal/food Take one capsule after intercourse Follow Up/Referrals: Colette Meeks PA-C [Primary Care Provider] - Stand Alone Forms: [employer] Info Instructions
[2024-06-22 12:21] LABS: Appearance Urine Clear (Clear); Bilirubin Urine Negative (Negative); Blood Urine Negative (Negative); Color Urine Yellow (Yellow); Glucose Urine Negative (Negative); Ketones Urine Negative (Negative); Leukocyte Esterase Urine Trace (Negative); Nitrite Urine Negative (Negative); Protein Urine Negative (Negative); Specific Gravity Urine 1.015 (1.000-1.030); Urobilinogen Urine 0.2 (0.2-1.0)
[2024-06-22 12:24] LABS: Ur HCG Qualitative* Negative (Negative)
[2024-06-22 12:33] LABS: Amorphous Sediment Urine Few; Bacteria Urine Moderate; RBC Urine 0-2 (0-2); Squamous Epithelial Cell Urine Many (None-Few); WBC Urine 0-2 (0-5)
[2024-06-22 13:08] VITALS: BP 115/72; PULSE 75; RESP 14; O2SAT 96
== END 2024-06-22 13:11 | disposition home or self-care (01) ==
PROVIDERS: Emergency Provider Family Medicine; PCP Physician Assistant Medical
DX: R10.9 Unspecified abdominal pain (principal)
CPT/HCPCS: 74019; 81001; 81025; 87086; 87186; 99283; 99284

== ENCOUNTER 2024-08-12 17:17 | Outpatient (CLI) | payer OTHER, SELFPAY | END 2024-08-12 17:18 | disposition home or self-care (01) | LOC: NFLDREF 08-16 01:19 | PROVIDERS: PCP Physician Assistant Medical; Referring Provider Physician Assistant Medical; Visit Provider Nurse Practitioner Family | DX: N30.00 Acute cystitis without hematuria (principal) | CPT/HCPCS: 87086 ==

== ENCOUNTER 2024-08-20 11:15 | Outpatient (CLI) | payer OTHER, SELFPAY ==
--- NOTE | 2024-08-20 11:30 | CRLHL7_ITS ---
For Patients: As a result of the Century Cures Act, medical imaging exams and procedure reports are released immediately into your electronic medical record. You may view this report before your referring provider. If you have questions, please contact your health care provider. OB ULTRASOUND LESS THAN 14 WEEKS, 08/20/2024 CLINICAL HISTORY: Dating and viability. COMPARISON: None. TECHNIQUE: Real time ballard scale imaging of the fetus was performed transvaginally. FINDINGS: LMP: 06/07/2024. MARYAM by LMP: 03/24/2025. GA: 9 weeks 1 day. CRL: 1.1 cm, 7 weeks 2 days. MARYAM 04/06/2025. FHR: 139 bpm. GEST SAC: 3.3 cm, appears within normal limits. YOLK SAC: 3.1 mm, appears within normal limits. RIGHT OVARY: 2.8 x 1.3 x 1.8 cm, within normal limits. LEFT OVARY: 3.6 x 2.0 x 3.3 cm, within normal limits. IMPRESSION: 1. Single living intrauterine with sonographic gestational age 7 weeks 2 days and sonographic due date 04/06/2025. 2. Incidental corpus luteal cyst left ovary. Simple right adnexal cyst measures 1.5 cm. 3. Right-sided subchorionic hemorrhage measures 12 x 16 x 7 mm. Jose Maria Howell M.D. Diagnostic Radiologist [employer] [email or web address] Transcribed: 1:51 pm DW/Dictated by: Jose Maria Howell MD @ 08/20/2024 1:01:00 PM (Electronically Signed)
== END 2024-08-20 11:16 | disposition home or self-care (01) ==
LOC: US 11:16
PROVIDERS: PCP Physician Assistant Medical; Visit Provider Registered Nurse
DX: Z34.91 Encounter for supervision of normal pregnancy, unspecified, first trimester (principal); Z3A.01 Less than 8 weeks gestation of pregnancy
CPT/HCPCS: 76817; 83021; 86592; 86703; 86704; 86706; 86762; 86787; 86803; 86850; 86900; 86901; 87086; 87340; 87491; 87591

== ENCOUNTER 2024-11-18 14:01 | Outpatient (CLI) | payer OTHER, SELFPAY ==
--- NOTE | 2024-11-18 14:00 | CRLHL7_ITS ---
For Patients: As a result of the Century Cures Act, medical imaging exams and procedure reports are released immediately into your electronic medical record. You may view this report before your referring provider. If you have questions, please contact your health care provider. OB ULTRASOUND SURVEY MARYAM by US: 04/06/2025. GA: 20 w, 1 d. INDICATION: anatomy. TECHNIQUE: Real time grayscale imaging of the fetus was performed. Evaluate anatomy. Transabdominal. position: Breech. Cervix: Visualized. Technique: Transabdominal. Length of closed cervix: 3.4 cm. Placenta/cord: Posterior. Technique: Transabdominal. Placenta tip to internal OS: 3.9 cm. Umbilical Cord: 3-vessel cord. Placenta insertion: Central. Amniotic Fluid: 5.9 cm SDP (greater than/equal to: 2- less than 8 cm). SURVEY: Observed Structures. Calvarium/Spine: Cerebellum: 2.1 cm, 21 w 2 d. Cisterna Magna: 4.1 mm. Nuchal Fold: 3.8 mm. Lateral Ventricle: 6.6 mm. CSP: Yes. Midline Falx: Yes. Choroid Plexus: Yes. Spine: Yes. Abdomen: Stomach: Yes. Abd Cord Insertion: Yes. Urinary Bladder: Yes. Kidneys: Yes. Diaphragm: Yes. Face: Nose/lips: Yes. Orbital view: Yes. Profile: Yes. Limbs: Upper Extremities: Yes. Lower Extremities: Yes. Hands: Yes. Feet: Yes. Vascular: 4-Chamber Heart: Yes. LVOT: Yes. RVOT: Yes. 3VV: Yes. 3VTV: Yes. BPD: 4.6 cm. 20 w, 0 d, 42.1 percent. HC: 17.4 cm. 20 w, 0 d, 32.2 percent. AC: 15.1 cm. 20 w, 2 d, 50.0 percent. FL: 3.2 cm. 19 w, 6 d, 29.5 percent. FL/AC ratio: 200.89 percent. HC/AC ratio: 1.15. heart rate: 138 bpm. age by this US: 20 w, 2 d. MARYAM by this US: 04/05/2025. EFW: 1329.30 g. Weight: 0 lbs, 12 oz. Percentile by MARYAM: 40.2 percent. IMPRESSION: Concordance of clinical and sonographic dating. Normal anatomic survey. Jose Maria Howell M.D. Diagnostic Radiologist [email or web address] [email or web address]/Dictated by: Jose Maria Howell MD @ 11/19/2024 8:25:00 AM (Electronically Signed)
--- OUTSIDE RECORDS SUMMARY | 2024-11-19 00:59 | XMS_ITS | Clinical Summary ---
Author Organization [facility] Address [address] [place] [id number] Care Team Providers Care Algorithm Design Engineer Name Role Phone Colette Meeks Primary Care [...] Encounters Date Type Department Care Team Description 08/20/2024 Orders Only [facility] HIM SERVICES Scanner 1 scan: (1-Ord) [facility] OB TRANSVAGINAL, 08/20/2024 from Last 3 Months Immunizations Immunization Administration Dates Next Due DTaP 01/23/2006, 2,2000,09/29,2000 [...] on file Legal Sex Female 5:42 AM [employer] Gender Identity Not on file Sexual Orientation Not on file Obstetrics History Last Filed Vital Signs Vital Sign Reading Time Taken Comments Blood Pressure 104/70 05/19/2024 7:37 AM [employer]ANT ELECT[employer]IAN Pulse 80 05/19/2024 7:37 AM [employer] E[employer]IAN Temperature 37.9 C (100.3 F) 03/25/2022 12:32 PM CDT Respiratory Rate 18 03/25/2022 11:13 AM CDT Oxygen Saturation 98% 05/19/2024 7:37 AM [employer]IAN Inhaled Oxygen Concentration - - Weight 55.8 kg (123 lb 1.6 oz) 05/19/2024 7:37 A M [employer] Height 152.4 cm (5') 05/20/2023 11:56 AM [employer] E[employer]IAN Body Mass Index 24.04 05/20/2023 11:56 AM [employer] E[employer]ICIAN Plan of Treatment Health Maintenance Due Date Last Done Comments Depression screening for age 12+ 2012 HPV series for age 9-26 (2 - 2-dose series) 07/15/2013 01/12/2013 HIV for age 15-65 2015 Hepatitis C screening for ag e 18-79 2018 Tetanus booster 01/12/2023 01/12/2013 COVID-19 vaccine series ( season) 2024 BMI (ht and wt on same day) for age 18+ 05/20/2024 05/20/2023, 01/08/2023, 12/20/2022 Chlamydia for age 16-24 05/20/2024 05/20/2023 Influenza Vaccine (Season Ended) 2025 Pap test for age 21-65 05/20/2026 05/20/2023 Pneumococcal series for age 6-49 Aged Out 2000 No longer eligible b ased on patient's age to complete this topic Hepatitis B series for 19+ Completed 02/13, 2000, 2000 Tdap Completed 01/12/2013 Procedures Procedure Name Priority Date/Time Associated Diagnosis Comments SCAN-ULTRASOUND REPORT 08/20/2024 12:00 AM CDT GC CHLAMYDIA TRACH PROBE Routine 05/20/2023 12:22 PM [employer]IAN Vaginal irritation RFID MANAGER THIN PREP PAP SCREEN IMAGED Routine 05/20/2023 12:22 PM [employer]IAN Screening for cervical cancer from Last 3 Months or Most Recently Relevant to Health Maintenance Results * SCAN-ULTRASOUND REPORT (08/20/2024 12:00 AM CDT) Anatomical Region Laterality Modality Other us Scanner OTHER Final Result * RFID MANAGER THIN PREP PAP SCREEN IMAGED (05/20/2023 12:22 PM HY[employer] ELECTRICIAN) Case Report Gynecologic Cytology Report Case: [id number] Authorizing Provider: Colette Meeks PA Collected: 05/20/2023 1222 Ordering Location: [facility] Received: 05/20/2023 1253 Clinic First Screen: Vincent Sexton Rescreen: Prabha Devine Specimen: RFID MANAGER ThinPrep Vial Screening, Cervical 05/29/2023 5:22 PM HY[employer]IC [employer] ELECT[employer]IAN [facility] INTERPRETATION/ RESULT NEGATIVE FOR INTRAEPITHELIAL LESION OR MALIGNANCY (NIL) (none) 05/29/2023 5:22 PM HYDROELECTRIC PLANT ELECTRICIAN [facility]- ENTRAL LABORATORY at 1722 HYDROELECTRIC PLANT ELECTRICIAN SPECIMEN ADEQUACY Satisfactory for evaluation Endocervical component present 05/29/2023 5:22 PM HYDROELECTRIC PLANT ELECTRICIAN [facility] Date of LMP unsure 05/29/2023 5:22 PM HYDROELECTRIC PLANT ELECTRICIAN [facility] ENTRAL LABORATORY Last Pap Date this is 1st 05/29/2023 5:22 PM HYDROELECTRIC PLANT ELECTRICIAN [facility] LABORAT[facility]-C ENTRAL LABORATORY Last Pap Result First Pap/Unknown 5:22 PM HYDROELECTRIC PLANT ELECTRICIAN [facility]- ENTRAL LAB[facility]ORY Abnormal Pap or Whately Bx in last 5 years No 05/29/2023 5:22 PM HYDROELECTRIC PLANT ELECTRICIAN [facility] ENTRAL LABORATORY Menstrual Status Hormonally Suppressed 05/29/2023 5:22 PM HYDROELECTRIC PLANT ELECTRICIAN [facility]- ENTRAL LAB[facility]ATORY Whately Bx Done Today No 05/29/2023 5:22 PM HYDROELECTRIC PLANT ELECTRICIAN [facility] ENTRAL LABORATORY Additional Information None given 05/29/2023 5:22 PM HYDROELECTRIC PLANT ELECTRICIAN [facility] ENTRAL LABORATORY Comment: Cytology is screened at [facility] - [address], [place] [address] and [facility] - [address], [place] [address] and [facility] - [address] [facility] [place] [address] Interpreted at [facility] - [address], [place] [address] Automated Review Successful 05/29/2023 5:22 PM HYDROELECTRIC PLANT ELECTRICIAN [facility]- ENTRAL LABORATORY Comment:Specimen processed s uccessfully by automated fiscal specialist device, [employer] Imaging System, [facility] [facility] Note The pap test is a screening technique, not a diagnostic procedure. It is used primarily to screen for squamous cancers and precursor lesions. Published studies have shown that it is subject to both false negative and false positive results. The pap test should not be used as the sole means to diagnose or exclude pre-malignant and malignant lesions. 05/29/2023 5:22 PM HYDROELECTRIC PLANT ELECTRICIAN [facility]- ENTRAL LABORATORY Other (Cervical) Non-Blood / Unknown 05/20/2023 12:22 PM HYDROELECTRIC PLANT ELECTRICIAN 05/20/2023 12:53 PM HYDROELECTRIC PLANT ELECTRICIAN Colette ALMEIDA PATHOLOGY/CYTOLOGY Luzma l Result Performing Organization Address [facility]/ZIP Co de Phone Number [facility] [address] [address], * GC & CHLAMYDIA DNA PCR [[id number]] (05/20/2023 12:22 PM HYDROELECTRIC PLANT ELECTRICIAN) CHLAMYDIA PROBE Negative 1:35 AM HYDROELECTRIC PLANT ELECTRICIAN [facility] TRAL LABORATORY N GONORRHOEAE PROBE Negative 05/21/2023 1:35 AM HYDROELECTRIC PLANT ELECTRICIAN [facility] TRAL LABORATORY Other VAGINAL SWAB / Unknown Non-Blood / Unknown 05/20/2023 12:22 PM HYDROELECTRIC PLANT ELECTRICIAN 05/20/2023 12:53 PM HYDROELECTRIC PLANT ELECTRICIAN Colette ALMEIDA MICROBIOLOGY Final R esult Performing Organization Address [facility]/ZIP Co de Phone Number [facility] [address] [address], from Last 3 Months or Most Recently Relevant to Health Maintenance Insurance [facility] Care Teams Algorithm Design Engineer Relationship Specialty Start Date End Date Colette Meeks PA [address] [place] [address] PCP - General Physician Bar Host/Hostess 05/19/23
== END 2024-11-18 14:02 | disposition home or self-care (01) ==
LOC: US 14:01
PROVIDERS: PCP Physician Assistant Medical; Visit Provider Advanced Practice Midwife
DX: Z34.92 Encounter for supervision of normal pregnancy, unspecified, second trimester (principal); Z3A.20 20 weeks gestation of pregnancy
CPT/HCPCS: 76805

== ENCOUNTER 2024-12-14 07:32 | Outpatient (CLI) | payer OTHER, SELFPAY | END 2024-12-14 07:33 | disposition home or self-care (01) | LOC: NFLDREF 12-15 16:03 | PROVIDERS: PCP Physician Assistant Medical; Referring Provider Physician Assistant Medical; Visit Provider Midwife | DX: R35.0 Frequency of micturition (principal) | CPT/HCPCS: 87086 ==

== ENCOUNTER 2025-01-11 13:04 | Outpatient (CLI) | payer OTHER, SELFPAY | END 2025-01-11 13:05 | disposition home or self-care (01) | LOC: NFLDREF 01-16 13:16 | PROVIDERS: PCP Physician Assistant Medical; Referring Provider Physician Assistant Medical; Visit Provider Advanced Practice Midwife | DX: Z34.92 Encounter for supervision of normal pregnancy, unspecified, second trimester (principal); Z3A.27 27 weeks gestation of pregnancy | CPT/HCPCS: 86592 ==

== ENCOUNTER 2025-01-17 19:24 | Outpatient (CLI) | payer OTHER, SELFPAY ==
[2025-01-17 20:26] LABS: Amnisure Rom* Negative
[2025-01-17 20:40] LABS: Trichomonas No Trichomonas Seen (None Seen)
[2025-01-17 20:52] VITALS: BP 110/64; PULSE 74; PULSE 76; TEMP 36.8; O2SAT 100
--- NOTE | 2025-01-17 21:22 | PC.OBNST ---
NST Note NST Note Start: 01/17/25 19:28 Freq: ONCE Status: Active Protocol: Document 01/17/25 20:45 ASH (Rec: 01/17/25 21:21 ASH Desktop) NST Note 1 Para (# of births) 0 EDC 04/06/25 Gestational Age In 28 Weeks & 5 Days Weeks & Days Patient Presented Leaking fluid,Decreased movement with Complaint(s) of Other Complaints Pt reported passing large mucous plug and questionable leaking of fluid since accompanied by some danny carl contractions. Amnisure and wetprep both negative. Reactive Yes Appropriate for Yes Gestational Age OUMOU Coreas RN Date 01/17/25 Reactive Yes Appropriate for Yes Gestational Age OUMOU Feng RN Date 01/17/25 OB NST charge Yes Complete NST Note Yes via Write Note The provider's electronic signature indicates the NST is reactive/appropriate for gestational age. *Note to provider: If an addendum is required, open the patient's chart and click on the note under the Nurse/Allied Health tab.
== END 2025-01-17 20:58 | disposition home or self-care (01) ==
LOC: OB OUT 19:25 → OB 19:27
PROVIDERS: PCP Physician Assistant Medical; Visit Provider Advanced Practice Midwife
DX: O47.03 False labor before 37 completed weeks of gestation, third trimester (principal); O36.8130 Decreased fetal movements, third trimester, not applicable or unspecified; Z3A.28 28 weeks gestation of pregnancy
CPT/HCPCS: 59025; 84112; 87210; G0463

== ENCOUNTER 2025-02-28 17:19 | Outpatient (CLI) | payer OTHER, SELFPAY ==
[2025-02-28 18:32] LABS: Amnisure Rom* Negative; Trichomonas No Trichomonas Seen (None Seen)
--- NOTE | 2025-02-28 19:11 | PC.OBNST ---
NST Note NST Note Start: 02/28/25 17:22 Freq: ONCE Status: Active Protocol: Document 02/28/25 18:50 HCR (Rec: 02/28/25 19:10 HCR [id number]) NST Note 1 Para (# of births) 0 EDC 04/06/25 Gestational Age In 34 Weeks & 5 Days Weeks & Days Patient Presented Contractions/cramping,Leaking fluid with Complaint(s) of Reactive Yes Appropriate for Yes Gestational Age OUMOU Ordoñez RN Date 02/28/25 Reactive Yes Appropriate for Yes Gestational Age OUMOU Viveros CNM Date 02/28/25 OB NST charge Yes Complete NST Note Yes via Write Note The provider's electronic signature indicates the NST is reactive/appropriate for gestational age. *Note to provider: If an addendum is required, open the patient's chart and click on the note under the Nurse/Allied Health tab.
== END 2025-02-28 18:52 | disposition home or self-care (01) ==
LOC: OB OUT 17:19 → OB 17:22
PROVIDERS: PCP Physician Assistant Medical; Visit Provider Advanced Practice Midwife
DX: O47.03 False labor before 37 completed weeks of gestation, third trimester (principal); Z3A.34 34 weeks gestation of pregnancy
CPT/HCPCS: 59025; 84112; 87210; G0463

== ENCOUNTER 2025-03-09 13:45 | Outpatient (CLI) | payer OTHER, SELFPAY ==
[2025-03-10 12:06] LABS: Strep B DNA Probe Negative (Negative)
[2025-03-10 12:36] LABS: Strep B Susceptibility Needed? No
== END 2025-03-09 13:46 | disposition home or self-care (01) ==
LOC: NFLDREF 13:45
PROVIDERS: PCP Physician Assistant Medical; Visit Provider Midwife
DX: Z34.93 Encounter for supervision of normal pregnancy, unspecified, third trimester (principal)
CPT/HCPCS: 87081; 87653

== ENCOUNTER 2025-03-19 18:43 | Outpatient (CLI) | payer OTHER, SELFPAY ==
[2025-03-19 19:00] VITALS: PULSE 82; O2SAT 100
[2025-03-19 19:01] VITALS: BP 119/79; PULSE 86; RESP 16; TEMP 36.7
[2025-03-19 19:05] VITALS: PULSE 94; O2SAT 99
[2025-03-19 19:10] VITALS: PULSE 86; O2SAT 98
[2025-03-19 19:15] VITALS: PULSE 90; O2SAT 98
[2025-03-19 19:44] LABS: Amnisure Rom* Negative
--- NOTE | 2025-03-19 20:22 | PC.OBNST ---
NST Note NST Note Start: 03/19/25 18:57 Freq: ONCE Status: Active Protocol: Document 03/19/25 18:57 VMM (Rec: 03/19/25 20:22 VMM No Response) NST Note 1 Para (# of births) 0 EDC 04/06/25 Gestational Age In 37 Weeks & 3 Days Weeks & Days Patient Presented Leaking fluid with Complaint(s) of Reactive Yes Appropriate for Yes Gestational Age OUMOU Quispe, RN Date 03/19/25 Reactive Yes Appropriate for Yes Gestational Age OUMOU Phillips RN Date 03/19/25 OB NST charge Yes Complete NST Note Yes via Write Note The provider's electronic signature indicates the NST is reactive/appropriate for gestational age. *Note to provider: If an addendum is required, open the patient's chart and click on the note under the Nurse/Allied Health tab.
== END 2025-03-19 20:03 | disposition home or self-care (01) ==
LOC: OB OUT 18:43 → OB 18:44
PROVIDERS: PCP Physician Assistant Medical; Visit Provider Midwife
DX: O47.03 False labor before 37 completed weeks of gestation, third trimester (principal); Z3A.37 37 weeks gestation of pregnancy
CPT/HCPCS: 59025; 84112; G0463

== ENCOUNTER 2025-03-27 20:07 | Outpatient (CLI) | payer OTHER, SELFPAY ==
[2025-03-27 20:18] VITALS: BP 112/77; PULSE 93; PULSE 96; O2SAT 99
[2025-03-27 20:28] VITALS: RESP 20; TEMP 36.7
--- NOTE | 2025-03-27 21:42 | PC.OBNST ---
NST Note NST Note Start: 03/27/25 20:12 Freq: ONCE Status: Active Protocol: Document 03/27/25 20:12 RRP (Rec: 03/27/25 21:42 RRP [id number]) NST Note 1 Para (# of births) 0 EDC 04/06/25 Gestational Age In 38 Weeks & 4 Days Weeks & Days Patient Presented Contractions/cramping with Complaint(s) of Reactive Yes Appropriate for Yes Gestational Age OUMOU Chen Date 03/27/25 Reactive Yes Appropriate for Yes Gestational Age OUMOU Morton Date 03/27/25 OB NST charge Yes Complete NST Note Yes via Write Note The provider's electronic signature indicates the NST is reactive/appropriate for gestational age. *Note to provider: If an addendum is required, open the patient's chart and click on the note under the Nurse/Allied Health tab.
== END 2025-03-27 21:43 | disposition home or self-care (01) ==
LOC: OB OUT 20:08 → OB 20:10
PROVIDERS: PCP Physician Assistant Medical; Visit Provider Advanced Practice Midwife
DX: O47.1 False labor at or after 37 completed weeks of gestation (principal); Z3A.38 38 weeks gestation of pregnancy
CPT/HCPCS: 59025; G0463

== ENCOUNTER 2025-03-31 16:00 | Outpatient (CLI) | payer OTHER, SELFPAY ==
[2025-03-31 16:05] VITALS: PULSE 82; O2SAT 97
[2025-03-31 16:08] VITALS: BP 113/62; PULSE 69; RESP 19; TEMP 37
[2025-03-31 16:10] VITALS: PULSE 82; O2SAT 97
[2025-03-31 16:15] VITALS: PULSE 87; O2SAT 98
[2025-03-31 16:20] VITALS: PULSE 82; O2SAT 97
[2025-03-31 16:25] VITALS: PULSE 84; O2SAT 98
--- NOTE | 2025-03-31 16:51 | PC.OBNST ---
NST Note NST Note Start: 03/31/25 16:02 Freq: ONCE Status: Active Protocol: Document 03/31/25 16:47 VMM (Rec: 03/31/25 16:51 VMM [id number]) NST Note 1 Para (# of births) 0 EDC 04/06/25 Gestational Age In 39 Weeks & 1 Days Weeks & Days Patient Presented Other with Complaint(s) of Other Complaints Patient was walked to the center from clinic due to low heart rate in the 70-bpm range. Patient brought to the center for observation. heart rate assessed by this RN, Brittni James, OUMOUC and Miriam French CNM. Miriam French CNM confirmed patient stable to discharge. Reactive Yes Appropriate for Yes Gestational Age OUMOU Quispe RN Date 03/31/25 Reactive Yes Appropriate for Yes Gestational Age ROSIE Aguiar Date 03/31/25 OB NST charge Yes Complete NST Note Yes via Write Note The provider's electronic signature indicates the NST is reactive/appropriate for gestational age. *Note to provider: If an addendum is required, open the patient's chart and click on the note under the Nurse/Allied Health tab.
== END 2025-03-31 16:49 | disposition home or self-care (01) ==
LOC: OB OUT 16:00 → OB 16:00
PROVIDERS: PCP Physician Assistant Medical; Visit Provider Advanced Practice Midwife
DX: O36.8330 Maternal care for abnormalities of the fetal heart rate or rhythm, third trimester, not applicable or unspecified (principal); Z3A.39 39 weeks gestation of pregnancy
CPT/HCPCS: 59025; G0463

== ENCOUNTER 2025-04-05 21:00 | Inpatient (IN) | payer OTHER, SELFPAY ==
[2025-04-05] VITALS (21 sets, daily range): BP systolic 114–151; BP diastolic 59–80; PULSE 72–99; RESP 16; TEMP 36.8; O2SAT 93–100; BMI 32.5
--- NOTE | 2025-04-05 21:32 | P.LDBA_ITS ---
Subjective History of Present Illness Narrative: Koko is a 24 yo at 39 6/7 weeks gestation being admitted to Labor and Delivery for spontaneous onset of labor. She reports contractions started this evening after her partner came home from work about 1600, she felt contractions became closer and more regular this evening. She denies any leaking of fluid or bleeding. She is coping well and was considering a waterbirth but is now considering options for pain relief. She did get in the tub after moving to a labor room but felt it only gave her a small amount of relief. Her full history and physical was dictated by JERICHO Chavez on 04/06/2025. Please see this for details. Specific Issues/Plans G 1 P 0 It is a boy! : Simoen H&P: done 03/15/25 by Luís Bravo CNM and EDITH Morris # Varicella non-immune. Rec. PP vaccine. # Frequent UTIs. Treated 1 week before first OB. # ADHD. Discontinued Adderall around time of conception. Not planning to take medication during . Consider 32 week growth if she resumes Adderall. #Anemia Hgb 10.4 at 28 wks, oral supplement and diet changes Hgb 11.6 at 34 weeks Imaging: IMAGING:??? 1st trimester: 1. Single living intrauterine with sonographic gestational age 7 weeks 2 days and sonographic due date 04/06/2025. 2. Incidental corpus luteal cyst left ovary. Simple right adnexal cyst measures 1.5 cm. 3. Right-sided subchorionic hemorrhage measures 12 x 16 x 7 mm. Anatomy scan: Concordance of clinical and sonographic dating. Normal anatomic survey. ? Vaccinations: Flu: Recommended, declines Covid: Recommended, declines Tdap: declined RSV: declined 32 week mental health: 02/11/2025 Last pap: NIL OB - Problem Based A/P Additional Plan (1) Pain during labor: Status: Acute (2) 39 weeks gestation of : Status: Acute (3) ADHD (attention deficit hyperactivity disorder): Status: Acute Plan ASSESSMENT:? 24 yo at 39.6 weeks gestation?by 1st trimester US complicated by:?varicella non-immune, frequent UTI's, ADHD, Anemia Labor type: Spontaneous, Early labor? Category 1 FHR pattern.?? Labor complicated by: none? GBS negative? ? PLAN:? 1. Routine intrapartum cares as ordered. Continue with expectant management? 2. Monitoring per policy, intermittent? 3. Planning unmedicated . Desires water . Consent signed. Hep C negative. Candidate for analgesia of choice, if desired. Considering epidural. IV and labs to be placed if patient request epidural. 4. Patient encouraged to reposition and ambulate to promote physiologic labor and .? 5. Anticipate ? Delivery/Labor/Induction Plan Plan: expectant management OB Result Labs Blood Type: O (+) positive GBS Status: negative OB Exam Physical Exam Narrative: Vitals Reviewed Constitutional:? Alert and oriented x3 HEENT:? Normocephalic, atraumatic Neck:? Supple Lungs:? Clear to auscultation bilaterally Heart:? Regular rate and rhythm, no murmur, rub or gallop Abdomen:? Soft, nontender, and gravid. Vertex by [facility], confirmed with cervical exam. Extremities:? No edema or erythema Cervix: 5 cm/80%/0 station/vertex NST: 135 bpm/moderate variability/15x15 accelerations/no decele rations/contractions every 2-3 minutes Detailed Labor and Delivery Exam Patient Gravid: yes
[2025-04-05 21:45] LABS: Hematocrit* 33.8 % (33.0-51.0); Hemoglobin* 11.5 gm/dL (12.0-16.0); Immature Granulocytes Abs Auto 0.10 K/uL (0.00-0.30); Immature Granulocytes Pct Auto 0.5 %; Lymphocytes Absolute Auto 1.50 K/uL (0.90-2.90); Mean Corpuscular HGB Conc 34 gm/dL (32-36); Mean Corpuscular Hemoglobin 31 pg (26-34); Mean Corpuscular Volume 91 fL (80-100); RDW Coefficient of Variation % 12.6 % (11.5-15.5); Red Blood Count* 3.72 m/uL (4.00-5.20); Slide Review Reflex No; White Blood Count* 16.30 K/uL (4.50-11.00)
[2025-04-05] MEDS: LACTATED RINGERS 1000 ML 1,000 ML 925 ML IV ×2 (22:17→23:03)
[2025-04-05] MEDS: ROPIVACAINE 0.2% 100 ml 100 ML 12 MG EPIDURAL (22:18)
[2025-04-05] MEDS: LIDOCAINE 2% (PF) 5 ML VIAL EPIDURAL (22:18)
--- NOTE | 2025-04-05 22:29 | P.ANBPRC_ITS ---
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 ?N34.1 - Nonspecific urethritis (ICD-10) ?A49.3 - Mycoplasma infection, unspecified site (ICD-10) Surgical History Hx of lymph node biopsy ?Z98.890 - Other specified postprocedural states (ICD-10) [place] teeth extracted ?K08.409 - Partial loss of teeth, unspecified cause, unspecified class (ICD- 10) Family History (Updated 03/15/25 @ 11:35 by Lupe Jacome) Father Alcohol dependence Social History What is your current living situation?: I presently have a place to live Problems where you live: no known problems In the past 12 months, utilities in danger of being shut off: no In past 12 months, lack of transportation kept you from medical appts, meetings, work, or getting things needed for daily living: no In the past 12 mos, have been you worried that your food would run out before you had money to buy more?: never true In the past 12 mos, the food you bought just didn't last and you didn't have money to buy more?: never true Smoking Status: Never smoker Do you use any of these nicotine containing products: None How often do you have a drink containing alcohol: never AUDIT-C Alcohol total score: 0 Non-prescribed substance use: denies use How often does anyone, including family, friends and others, physically hurt you : never How often does anyone, including family, friends and others, insult or talk down to you: never How often does anyone, including family, friends and others, threaten you with harm: never How often does anyone, including family, friends and others, scream or curse at you: never Meds Home Medications and Allergies Home Medications ?Medication ?Instructions ?Recorded ?Confirmed ?Type docosahexaenoic acid 200 mg 200 mg PO DAILY 08/12/24 1 06/05/24 History capsule ( DHA) Fiber Gummies 1 tab PO .every other day 04/05/25 History ferrous sulfate 325 mg (65 mg 325 mg PO QDAY 03/02/25 04/05/25 History iron) tablet (Feosol) Allergies Allergy/AdvReac Type Severity Reaction Status Date / Time No Known Drug Allergies Allergy Verified 04/05/25 20:15 Results Labs Labs: Laboratory Results - last 24 hr 04/05/25 21:38 WBC 16.30 H RBC 3.72 L Hgb 11.5 L Hct 33.8 MCV 91 MCH 31 MCHC 34 RDW Coeff of Rach 12.6 Plt Count 269 Neut % (Auto) 86.6 H Lymph % (Auto) 9.1 L Parker % (Auto) 3.6 Eos % (Auto) 0.1 Baso % (Auto) 0.1 Neut # (Auto) 14.10 H Lymph # (Auto) 1.50 Parker # (Auto) 0.60 Eos # (Auto) 0.00 Baso # (Auto) 0.00 Abs Immat Gran (auto) 0.10 Imm/Tot Granulo (auto) 0.5 Vital Signs Vital Signs: Last Vital Signs Temp 98.2 F 04/05/25 21:12 Pulse 96 04/05/25 22:26 Resp 16 04/05/25 21:12 BP 127/67 04/05/25 22:26 Pulse Ox 100 04/05/25 22:27 Weight: 75.75 kg Height: 152.4 cm Anesthesia Procedures Epidural Insertion Patient Location: OB Start Time: 21:45 Stop Time: 22:45 Start Date: 04/05/25 Stop Date: 04/05/25 Reason for Block: primary anesthetic Patient Position: sitting Performed By: Evens Castro Preanesthetic Checklist: IV checked, risks and benefits discussed, surgical consent, monitors and equipment checked, pre-op evaluation, timeout performed and anesthesia consent Prep: chlorhexidine gluconate Monitoring: blood pressure monitoring, rn cardiac cath, continuous pulse oximetry and heart rate Approach: midline Vertebral Space: lumbar (1-5) Needle Type: Tuohy needle Injection Technique: continuous catheter Needle gauge: 17 Needle Length (cm): 10 cm Needle Insertion Depth (cm): 6 Catheter Gauge: 19 Catheter Type: multi-orifice Catheter at skin depth (cm): 12 Test Dose Result: negative and lidocaine 1.5% with epinephrine 1 to 200,000 Events: other
[2025-04-06] VITALS (22 sets, daily range): BP systolic 93–139; BP diastolic 50–80; PULSE 52–139; RESP 16–20; TEMP 36.5–37.1; O2SAT 96–98
[2025-04-06] MEDS: ONDANSETRON 2 MG/ML inj 4 MG IV (03:28)
[2025-04-06] MEDS: LIDOCAINE 1 % PF 30 ML INJECTION (04:16)
[2025-04-06] MEDS: OXYTOCIN 30 unit/500 ML in NS 30 UNIT/500 ML BAG 325 UNIT IVPB (04:25)
--- NOTE | 2025-04-06 04:47 | W.PM.OBVAGDE ---
OB Procedure Vag Delivery Mother Details Mother Details: The patient is a 24 year-old, 1, now Para 1, admitted on 04/05/25 at 39.6 Days gestation for spontaneous onset of labor. : 1 Para: 1 Weeks Gestation: 40.0 Admission Date: 04/05/25 Additional Details Amniotic Membrane Status: SROM Amniotic Membrane Rupture Date: 04/05/25 Amniotic Membrane Rupture Time: 21:11 Amniotic Membrane Fluid Description: Clear Analgesia/Anesthesia Type: Epidural Waterbirth: No Pitcoin: Yes ([facility]TS[facility] only) Intrapartal Events: None Labor Onset: 21:30 Complete: 01:50 Pushin:00 Heart: heart tones during second stage were category II with variable decelerations present with slow recovery that improved with position changes. Delivery Details Delivery Date: 04/06/25 Delivery Time: 04:07 Route of delivery: Gender: Male Viability: Alive; Heart Rate Present Position at Delivery: OA Delivery Details: Patient was admitted for spontaneous onset of labor and progressed normally. SROM of clear fluid at 2110. She utilized an epidural for pain management. Patient was complete at 0150 and pushing at 0300, delayed as provider was in another delivery and patient was feeling minimal pressure. of a viable male at 0407, semi-fowlers on the bed. Vertex delivered OA. Nuchal cord identified and unable to reduce. Delivered and reduced from nuchal and body at perineum. No shoulder. Body delivered easily and without incident. passed to mothers abdomen with a vigorous cry. Cord was clamped and cut at > 5 minutes. APGARS were 9 at one minute and 9 at five minutes respectively. Mouth was bulb suctioned. Intact placenta with a 3 vessel cord delivered spontaneously at 0420. Fundus firm. 2nd degree perineal laceration identified and repaired in typical fashion. QBL 550 cc, resolved with fundal massage and IV Pitocin. Mother and baby stable; mother plans to breastfeed. Infant weight pending. 1 Minute Interval Total Score: 9 5 Minute Interval Total Score: 9 Additional Details Shoulder Dystocia: No Placenta Delivery Time: 04:20 Placental Delivery Description: Spontaneous Delivery repair: Vicryl Procedure Done: Global Blood Loss: 550 Laceration: Perineal - 2nd Degree Blood Loss Measurement Type: QBL Bakri Used: No Sponge/Need Count Correct: Yes Cord Vessel Description: 3 Vessels, Nuchal Cord and Around Body Event Summary Status: Mother and infant were stable after delivery. Disposition: floor
[2025-04-06] MEDS: DOCUSATE SODIUM 100 MG CAPSULE PO (09:27)
--- NOTE | 2025-04-06 13:55 | PM.ANPOST ---
Post Anesthesia Note Post Anesthesia Note Patient seen: Inpatient Respiratory Status: adequate Cardiovascular Status: adequate Mental Status: baseline Pain: adequate Temp: baseline Anesthetic awareness: N/A Complications: none Follow care: none
[2025-04-07 00:24] VITALS: BP 109/73; PULSE 75; RESP 20; TEMP 36.3; O2SAT 97
[2025-04-07 05:48] LABS: Hemoglobin* 9.1 gm/dL (12.0-16.0)
[2025-04-07 09:25] VITALS: BP 109/71; PULSE 100; RESP 14; TEMP 36.6; O2SAT 98
--- NOTE | 2025-04-07 10:03 | PM.OBDSVD1 ---
DS: Providers Provider Time Seen by Provider: 10:03 Date Seen: 04/07/25 Date of admission: 04/05/25 21:00 Primary care physician: Colette Meeks PA-C Admitting Clinician: Clara Viveros CNM Attending Physician on discharge: Bertha Marroquin CNM Date of Discharge: 04/07/25 DS: Diagnosis Discharge Diagnosis (1) care and examination of lactating mother: Status: Acute (2) anemia: Status: Acute Problem details: Will take iron she has at home PP. (3) Hemorrhoids: Status: Acute Problem details: Discussed self care, use of topical treatments, avoiding constipation. Exam Narrative: Exam Narrative: GENERAL APPEARANCE:? normal affect, alert, no distress? MOOD:? appropriate? CHEST:? clear to auscultation and percussion? HEART:? regular rate and rhythm? BREASTS: soft, nontender, no erythema, nipples intact? ABDOMEN:? soft, non-tender the uterine fundus is firm and is appropriate for the stage of recovery.? PERINEUM:? mild edema of the perineum, there is a 2nd degree lac that is healing well.? EXTREMITIES:? normal and no edema? Const: Vital Signs, click to edit/add: Vital Signs - 24 hr 04/06/25 12:54 04/06/25 16:44 04/06/25 21:22 Temperature 98.6 F 98.1 F 97.9 F Pulse Rate [Pulse Oximeter] 81 85 52 L Respiratory Rate 16 16 20 Blood Pressure [Le ft Arm] 119/80 112/73 102/54 L Pulse Oximetry 98 96 96 Oxygen Delivery Me thod Room Air Room Air Room Air 04/07/25 00:24 04/07/25 09:25 Temperature 97.4 F L 97.9 F Pulse Rate [Pulse Oximeter] 75 100 Respiratory Rate 20 14 Blood Pressure [Le ft Arm] 109/73 109/71 Pulse Oximetry 97 98 Oxygen Delivery Me thod Room Air Room Air OB - DS: Summary Hospital Course Hospital Course: Patient has no complaints? No active bleeding?? Doing well? She is requesting discharge home.? ? Patient is a 24year old, G 1 now P 1? admitted on 04/05/2025 at 39 Weeks, 6 Days gestation for labor.? She had an uncomplicated vaginal delivery.? She delivered a viable male .?? Peripartum Data delivery method: Vaginal Laceration description: Perineal - 2nd Degree (repaired with vicryl) complications: none Gender: Male (significant tongue tie, planning to have clipped.) Infant Discharge Plan: Home Status at Discharge Functional status at discharge: independent ambulation Overall status at discharge: patient is progressing back to baseline Time Spent with Patient Time attestation: Total time spent providing and/or coordinating discharge services: Time spent: Greater than 30 minutes Discharge Plan Discharge Disposition: Home, Self-Care Date of Admission: 04/05/25 21:00 Attending Provider on Discharge: Bertha Marroquin Primary Care Provider: Colette Meeks Condition: Stable Anticipated Discharge Date/Time: 04/07/25 10:07 Discharge Medications: New docusate sodium 100 mg Capsule 100 mg PO BID PRN (Reason: constipation) Qty: 60 0RF Continued DHA 200 mg capsule 200 mg PO DAILY ferrous sulfate [Feosol] 325 mg (65 mg iron) tablet 325 mg PO QDAY Fiber Gummies 1 tab PO .every other day Discharge Orders: Discharge Order (Routine); Ordered 04/07/25 Ordered By: Bertha Marroquin Patient Education: OB Vaginal/Breast Feeding Additional Instructions: Discharge instructions were reviewed with the patient including signs and symptoms of infection and home going medications.? Lifting Restrictions: 20 pounds for 6? weeks? Off Work or School for 6 weeks.? ?? Symptoms to report to doctor:?-Bleeding that saturates more than one pad per hour? -Passing clots larger than the size of a golf ball? -Pain not relieved by prescribed medication? -Fever above 100.4 degrees Fahrenheit? -A foul vaginal odor? -Difficulty in emotions, mood and functions? -Thoughts of hurting yourself and/or ? -Painful, reddened area in your breast? -Any drainage, redness or tenderness in your IV/epidural site? -Severe headache that doesn't improve after taking medications? -Changes in vision, including temporary loss of vision, blurred vision, and/or light sensitivity? -Upper abdominal pain (usually under ribs on the right side)? -Decrease in urination or painful, frequent urinating? -Chest pain? -Shortness of breath? -Tenderness or pain with redness and/swelling in the calf(s) of your leg? ? Follow Up in clinic in 2 and 6 weeks.? ?? consultation services are available to all mothers and babies for the first year after delivery.? To make an appointment, please call [phone].? Activity Level: No Restrictions and Activity as Tolerated Discharge Diet: Regular Follow Up Appointments: Colette Meeks, ZAC [Primary Care Provider, Family Practice] Bertha Marroquin CNM [Certified Nurse Insurance Appraiser, Insurance Appraiser] Forms: MyHealth Info Instructions
== END 2025-04-07 14:32 | disposition home or self-care (01) | DRG 806 ==
LOC: OB OUT 21:00 → OB 21:00
PROVIDERS: Admitting Provider Advanced Practice Midwife; PCP Physician Assistant Medical; Visit Provider Advanced Practice Midwife
DX: O99.02 Anemia complicating childbirth (principal); O87.2 Hemorrhoids in the puerperium; Z37.0 Single live birth; O70.1 Second degree perineal laceration during delivery; D64.9 Anemia, unspecified; F90.9 Attention-deficit hyperactivity disorder, unspecified type; Z3A.39 39 weeks gestation of pregnancy
CPT/HCPCS: 01967; 36415; 85018; 85025; 86592; 86850; 86900; 86901; A9270; J2003; J2405; J2795; J3010; J7120